=== PATIENT | male | born 1955 | race Asian ===

== ENCOUNTER 2017-01-27 15:08 | Emergency (ER) | payer OTHER ==
[2017-01-27 15:19] VITALS: BP 115/78
[2017-01-27] MEDS ORDERED: HYDROcod/ACETAM 5/325 MG TABLET PO STA (16:15)
[2017-01-27] MEDS ORDERED: HYDROcod/ACETAM 5/325 MG TABLET ONE (16:16)
--- NOTE | 2017-01-27 16:24 | ED Physician Documentation ---
PD HPI BACK PAIN - Stated complaint Stated Complaint: TAIL BONE PX - Chief complaint Chief Complaint: General - History obtained from History obtained from: Patient, Family - History of Present Illness Timing - onset: How many weeks ago (6) Timing - duration: Weeks (6) Timing - details: Gradual onset, Still present Location: Lower Quality: Pain, Spasm, Sharp Associated symptoms: No: Fever, Weakness, Numbness Improves with: Rest Worsened by: Movement, Palpation Similar symptoms before: Has not had sx before Recently seen: Other (The patient was recently seen the oncologist has had a biopsy done and MRI scanning.) - Additional information Additional information: 61-year-old male has had some trouble with his back pain not responding to his usual conservative measures and over the past 6 months he has lost weight and developed more pain in his lower back. He has been into see the oncologist and he has been diagnosed with prostate cancer and has had an MRI of his back showing metastases to his bone. He has pain specifically in the sacroiliac area and the coccyx. The patient is expecting to see the oncologist tomorrow he is expecting to start some anti-androgen medication today and he is considering orchiectomy. 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 Review of Systems Constitutional: reports: Fatigue. denies: Fever Eyes: denies: Decreased vision Ears: denies: Ear pain Nose: denies: Congestion Throat: denies: Sore throat Cardiac: denies: Chest pain / pressure Respiratory: denies: Dyspnea, Cough GI: denies: Abdominal Pain, Nausea, Vomiting : denies: Dysuria Musculoskeletal: reports: Back pain Neurologic: reports: Generalized weakness. denies: Focal weakness, Numbness PD PAST MEDICAL HISTORY - Present Medications Home Medications: Ambulatory Orders Medication Instructions Recorded Confirmed HYDROcod/ACETAM 5/325 [[place] 5/325] 1 - 2 ea PO Q6H PRN #15 tablet 01/27/17 - Allergies Allergies/Adverse Reactions: Allergies Allergy/AdvReac Type Severity Reaction Status Date / Time No Known Drug Allergies Allergy Verified 01/27/17 15:19 PD ED PE NORMAL - Vitals Vital signs reviewed: Yes (Normal) - General General: Alert and oriented X 3, No acute distress, Well developed/nourished - HEENT HEENT: Atraumatic, PERRL - Respiratory Respiratory: No respiratory distress - Back Back: No CVA TTP, Other (There is pain to palpation of the lower lumbar spine and more tenderness to the coccyx) - Derm Derm: Normal color, Warm and dry, No rash - Extremities Extremities: No deformity, No edema - Neuro Neuro: Alert and oriented X 3, No motor deficit, No sensory deficit, Normal speech - Psych Psych: Normal mood, Normal affect Results - Vitals Vitals: Vital Signs - 24 hr 01/27/17 15:15 Temperature 36.4 C L Heart Rate 72 Respiratory 14 Rate Blood Pressure 115/78 O2 Saturation 100 Oxygen O2 Source Room air PD MEDICAL DECISION MAKING - ED course Complexity details: considered differential, d/w patient, d/w family ED course: 61-year-old male with a history of prostate cancer diagnosed yesterday has pain related to bony metastases. Here in the emergency department he is given a dose of Vicodin. And we have provided a prescription for a limited number of pain pills. Departure - Departure Disposition: 01 Home, Self Care Clinical Impression: Pain due to malignant neoplasm metastatic to bone Condition: Stable Instructions: Bone Metastasis Follow-Up: Your, doctor [Other] Prescriptions: HYDROcod/ACETAM 5/325 [[place] 5/325] 1 - 2 ea PO Q6H PRN #15 tablet PRN Reason: Pain
== END 2017-01-27 16:31 | disposition home or self-care (01) ==
LOC: ED 15:08
DX: G89.3 Neoplasm related pain (acute) (chronic) (principal); C79.51 Secondary malignant neoplasm of bone
CPT/HCPCS: 99283; A9270

== ENCOUNTER 2018-11-22 09:02 | Outpatient (CLI) | payer MEDICARE, OTHER ==
[2018-11-22 09:36] LABS: CHOL/HDL RATIO 2.7 (<5.0); CHOLESTEROL 307 mg/dL; HDL CHOLESTEROL 114 mg/dL; LDL CHOLESTEROL,CALCULATED 171 mg/dL; LDL/HDL RATIO 1.5 (<3.6); VLDL CHOLESTEROL 22 mg/dL
== END 2018-11-22 09:03 | disposition home or self-care (01) ==
LOC: LAB 09:02
PROVIDERS: ATTEND Internal Medicine
DX: C61 Malignant neoplasm of prostate (principal); Z79.899 Other long term (current) drug therapy; Z13.6 Encounter for screening for cardiovascular disorders
CPT/HCPCS: 36415; 80061; 83721

== ENCOUNTER 2019-05-09 09:43 | Outpatient (CLI) | payer MEDICARE, OTHER ==
--- NOTE | 2019-05-09 15:49 | Nuclear Medicine Report ---
Reason: METASTATIC WITH PROSTATE CANCER Procedure Date: 05/09/2019 Accession Number: [id number] / [id number] Procedure: NM - Bone Whole Body CPT Code: FULL RESULT: EXAM: BONE SCAN. EXAM DATE: 05/09/2019 02:08 PM. CLINICAL HISTORY: Metastatic with prostate cancer. COMPARISON: Thoracic spine and pelvis radiographs, same day (reports are not available). TECHNIQUE: Following the intravenous administration of 31.9 mCi of technetium 99m MDP and an appropriate delay, a whole-body scan was performed in anterior and posterior projections. Site-specific spot views of the region of interest were obtained in various projections. FINDINGS: Exam Quality: Normal overall osseous radiotracer uptake. Physiological tracer uptake in bilateral collecting systems. Skull: No focal uptake. Thorax: There is a tiny focus of increased uptake in the right lateral 5th rib and another in the left posterior 10th rib. Pelvis: There is a lesion in the midline upper sacrum which shows intensely increased uptake. There is an area of intensely increased uptake along the right sacroiliac joint. Additional asymmetric focus of uptake more inferiorly along the right sacroiliac joint. Spine: Curvilinear increased uptake along the right side of T8-T9, probably degenerative. IMPRESSION: 1. There are lesions in the pelvis and sacrum which are concerning for metastases. 2. Equivocal tiny subtle lesions in the right lateral 5th and left posterior 10th ribs. 3. Increased uptake along the right side of T8-T9 is favored to be degenerative. RADIA
--- NOTE | 2019-05-09 16:55 | XRAY Report ---
Reason: PAIN Procedure Date: 05/09/2019 Accession Number: [id number] / [id number] Procedure: XR - Pelvis 1 View CPT Code: FULL RESULT: EXAM: PELVIS RADIOGRAPHY EXAM DATE: 05/09/2019 02:00 PM. CLINICAL HISTORY: PAIN. Stage IV prostate cancer. COMPARISON: BONE SCAN 05/09/2019 12:31 PM. TECHNIQUE: 1 view. FINDINGS: Bones: No fracture or bone lesion. Joints: The visualized hip, pubis symphysis, and sacroiliac joints are preserved. No subluxation. Degenerative changes are present in the sacroiliac joints which may account for the increased uptake seen on the recent bone scan. Soft Tissues: Unremarkable IMPRESSION: No blastic lesion is identified to account for the increased tracer uptake seen in the pelvis by bone scan. Degenerative changes are present. [facility] ADDENDUM: 05/10/19 09:37 Prior report now available from a bone scan performed 01/29/2017 describes extensive abnormal accumulation throughout the right and left sacrum. There are additional foci of abnormal increased uptake within the coccyx and left acetabular region. Findings correspond to areas of abnormal signal on the prior MRI study and are consistent with bony metastatic disease. If pelvic pain persists consider follow-up by MRI to assess the extent of metastatic disease.
--- NOTE | 2019-05-09 16:57 | XRAY Report ---
Reason: PAIN Procedure Date: 05/09/2019 Accession Number: [id number] / [id number] Procedure: XR - Thoracic Spine 2 View CPT Code: FULL RESULT: EXAM: THORACIC SPINE RADIOGRAPHY EXAM DATE: 05/09/2019 02:00 PM. CLINICAL HISTORY: PAIN. Abnormal bone scan mid thoracic region. Stage IV prostate cancer. COMPARISON: None. TECHNIQUE: 2 views. FINDINGS: Alignment: No spondylolisthesis or scoliosis. Bones: No fractures or bone lesions. Scattered degenerative osteophyte formation. Disks: Scattered degenerative disk space narrowing. Soft Tissues: The included lungs and cardiomediastinal silhouette are normal. IMPRESSION: Degenerative change thoracic spine without definite evidence of a lytic or blastic lesion. RADIA
== END 2019-05-09 09:44 | disposition home or self-care (01) ==
LOC: DI 09:43
PROVIDERS: ATTEND Physician Assistant
DX: M51.34 Other intervertebral disc degeneration, thoracic region (principal); M47.814 Spondylosis without myelopathy or radiculopathy, thoracic region; M47.818 Spondylosis without myelopathy or radiculopathy, sacral and sacrococcygeal region; C61 Malignant neoplasm of prostate; C79.9 Secondary malignant neoplasm of unspecified site
CPT/HCPCS: 72070; 72170; 78306

== ENCOUNTER 2020-01-27 06:39 | Emergency (ER) | payer MEDICARE, OTHER ==
[2020-01-27 07:21] LABS: ALBUMIN 4.7 g/dL (3.2-5.5); ALBUMIN/GLOBULIN RATIO 2.9 (1.0-2.2); BILIRUBIN,TOTAL 1.2 mg/dL (0.2-1.0); CALCIUM 9.5 mg/dL (8.5-10.3); CREATININE 1.2 mg/dL (0.6-1.2); TOTAL PROTEIN 6.3 g/dL (6.7-8.2)
[2020-01-27] MEDS ORDERED: SODIUM CHLORIDE 0.9% 1,000 ML IV STA (07:27)
[2020-01-27] MEDS ORDERED: KETOROLAC 30 MG/ML VIAL IVP STA (07:27)
[2020-01-27 07:31] LABS: BASOPHILS % (AUTO) 0.3 %; EOSINOPHILS % (AUTO) 0.1 %; HGB - HEMOGLOBIN 14.9 g/dL (14.0-18.0); LYMPHOCYTES # (AUTO) 1.3 10^3/uL (1.5-3.5); MEAN CORPUSCULAR HEMOGLOBIN 33.3 pg (27.0-31.0); MEAN CORPUSCULAR HGB CONC 35.5 g/dL (32.0-36.0); MEAN CORPUSCULAR VOLUME 93.8 fL (80.0-94.0); MEAN PLATELET VOLUME 10.6 fL (7.4-11.4); MONOCYTES # (AUTO) 0.9 10^3/uL (0.0-1.0); NEUTROPHILS # (AUTO) 6.5 10^3/uL (1.5-6.6); NEUTROPHILS % (AUTO) 73.9 %; PLT - PLATELET COUNT 241 10^3/uL (130-450); RED BLOOD COUNT 4.48 10^6/uL (4.70-6.10); RED CELL DISTRIBUTION WIDTH 11.7 % (12.0-15.0); WHITE BLOOD COUNT 8.8 x10^3/uL (4.8-10.8)
--- NOTE | 2020-01-27 07:31 | ED Physician Documentation ---
PD HPI ABD PAIN - Stated complaint Stated Complaint: ABD PX, BACK PX - CA PT - Chief complaint Chief Complaint: Abd Pain - History obtained from History obtained from: Patient, Family - History of Present Illness Timing - onset: Enter time (0700), Yesterday Timing - duration: Days (1) Timing - details: Abrupt onset, Still present Quality: Sharp, Pain Location: Epigastric Radiation: Right flank Improved by: Other (nothing) Worsened by: Other (nothing) Associated symptoms: Nausea, Hematuria. No: Fever, Vomiting, Hematemesis, Diarrhea, Constipation, Dysuria Similar symptoms before: Has not had sx before Recently seen: Not recently seen - Additional information Additional information: 64-year-old male with stage IV prostate cancer has developed epigastric and right upper quadrant abdominal pain beginning yesterday morning. He has had some nausea with this he has not had vomiting he has been able to eat throughout the day. He did not find anything that helped with the pain he did not find anything that made it worse. He has not had this specific pain previously. He did note a pink tinge to his urine yesterday. Review of Systems Constitutional: denies: Fever Eyes: denies: Decreased vision Ears: denies: Ear pain Nose: denies: Rhinorrhea / runny nose, Congestion Throat: denies: Sore throat Respiratory: denies: Cough GI: reports: Abdominal Pain, Nausea. denies: Vomiting, Constipation, Diarrhea : reports: Hematuria. denies: Dysuria, Frequency Skin: denies: Rash Musculoskeletal: reports: Back pain. denies: Neck pain, Extremity pain PD PAST MEDICAL HISTORY - Past Medical History Past Medical History: Yes : Other Other Past Medical History: Prostate CA mets to bones - Past Surgical History Past Surgical History: No - Present Medications Home Medications: Ambulatory Orders Medication Instructions Recorded Confirmed Abiraterone Acetate [Zytiga] 1,000 mg PO DAILY 10/11/18 01/27/20 Calcium Carbonate/Vitamin D3 1 tab PO DAILY 10/11/18 01/27/20 [Calcium 250-D Tablet] Cannabidiol (Cbd) [Epidiolex] 50 - 125 mg PO BID 10/11/18 01/27/20 Prednisone 5 mg PO DAILY 10/11/18 01/27/20 Ascorbic Acid [Vitamin C] 500 mg PO BID 11/22/18 01/27/20 Megestrol Acetate [Megace Es] 40 mg PO DAILY 02/21/19 01/27/20 Cannabidiol (Cbd) [Epidiolex] 125 mg PO QPM 04/26/19 01/27/20 Hydrocodone/Acetaminophen 1 - 2 each PO Q6H PRN #14 tablet 01/27/20 [Hydrocodon-Acetaminophen 5-325] Ondansetron Odt [Zofran] 4 mg TL Q6H PRN #10 tablet 01/27/20 - Allergies Allergies/Adverse Reactions: Allergies Allergy/AdvReac Type Severity Reaction Status Date / Time oxybutynin AdvReac Dizziness Verified 01/27/20 06:49 - Social History Does the pt smoke?: No Smoking Status: Never smoker Does the pt drink ETOH?: No Does the pt have substance abuse?: No - Immunizations Immunizations are current?: Yes - POLST Patient has POLST: No PD ED PE NORMAL - Vitals Vital signs reviewed: Yes (Hypertensive) - General General: Alert and oriented X 3, Well developed/nourished, Other (Uncomfortable 64-year-old male writhing in his bed) - HEENT HEENT: Atraumatic, PERRL, EOMI - Neck Neck: Supple, no meningeal sign, No bony TTP - Cardiac Cardiac: RRR, No murmur - Respiratory Respiratory: No respiratory distress, Clear bilaterally - Abdomen Abdomen: Normal bowel sounds, Soft, Non tender, Non distended, No organomegaly - Back Back: No CVA TTP, No spinal TTP - Derm Derm: Normal color, Warm and dry, No rash - Extremities Extremities: No deformity, No edema - Neuro Neuro: Alert and oriented X 3, 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6 Neut # (Auto) 6.5 Lymph # (Auto) 1.3 L [place] # (Auto) 0.9 Eos # (Auto) 0.0 Baso # (Auto) 0.0 Absolute Nucleated RBC 0.00 Nucleated RBC % 0.0 Sodium 140 Potassium 3.0 L Chloride 106 Carbon Dioxide 20 L Anion Gap 14.0 H BUN 18 Creatinine 1.2 Estimated GFR (MDRD) 61 L Glucose 155 H Calcium 9.5 Total Bilirubin 1.2 H AST 20 ALT 18 Alkaline Phosphatase 33 L Total Protein 6.3 L Albumin 4.7 Globulin 1.6 L Albumin/Globulin Ratio 2.9 H Lipase 27 Urine Color YELLOW Urine Clarity CLEAR Urine pH 6.0 Ur Specific [place] 1.025 Urine Protein NEGATIVE Urine Glucose (UA) NEGATIVE Urine Ketones TRACE Urine Occult Blood LARGE H Urine Nitrite NEGATIVE Urine Bilirubin NEGATIVE Urine Urobilinogen 0.2 (NORMAL) Ur Leukocyte Esterase NEGATIVE Urine RBC 11-25 H Urine WBC 0-3 Ur Squamous Epith Cells NONE SEEN Urine Crystals 6-10 Calcium Oxalate Urine Bacteria None Seen Ur Microscopic Review INDICATED Urine Culture Comments NOT INDICATED - Rads (name of study) CT ab/pel w/o Radiology: Prelim report reviewed (Impression: 1. Mild right hydronephrosis and proximal hydroureter secondary to 3 mm ureteral calculus as above.), EMP read indepedently, See rad report Procedures - Bedside sono Bedside sono by EMP: With use of bedside ultrasound the right upper quadrant is imaged there is no clear depiction of the gallbladder. The right kidney is imaged it is sonographically nontender and there is evidence of hydronephrosis. During the exam the patient does not exhibit any tenderness but is clearly able to identify this the area of his pain as mid right abdomen laterally PD MEDICAL DECISION MAKING - ED course Complexity details: reviewed results, re-evaluated patient, considered differential, d/w patient, d/w family ED course: 64-year-old male with stage IV prostate Cancer comes in with complaints of right upper quadrant abdominal pain he has some hydronephrosis on bedside exam with the ultrasound and history consistent with ureteral lithiasis. IV saline is begun is given 30 mg of Toradol. This had little effect on the patient's pain and he is administered Dilaudid 1 mg intravenously with Zofran 4 mg. He has excellent pain control with this. CT does demonstrate the appearance of a 3 mm stone in the proximal ureter with some mild hydro-. Departure - Departure Disposition: 01 Home, Self Care Clinical Impression: Ureterolithiasis Condition: Stable Instructions: ED Stone Renal W Colic Follow-Up: Joel Ramirez MD [Primary Care Provider] - Prescriptions: Hydrocodone/Acetaminophen [Hydrocodon-Acetaminophen 5-325] 1 - 2 each PO Q6H PRN #14 tablet PRN Reason: pain Ondansetron Odt [Zofran] 4 mg TL Q6H PRN #10 tablet PRN Reason: Nausea / Vomiting Discharge Date/Time: 01/27/20 10:13
[2020-01-27] MEDS ORDERED: ONDANSETRON 4 MG/2 ML VIAL IVP STA (08:00)
[2020-01-27] MEDS ORDERED: HYDROmorphone 1 MG/ML CARPUJECT IVP STA ×2 (08:00→09:01)
--- NOTE | 2020-01-27 08:09 | CT Report ---
PROCEDURE: Abdomen/Pelvis WO INDICATIONS: flank pain kidney stone suspected R TECHNIQUE: Noncontrast 5 mm thick sections acquired from the diaphragms to the symphysis. 5 mm coronal and sagi ttal reformats were then performed. For radiation dose reduction, the following was used: automated exposure control, adjustment of mA and/or kV according to patient size. COMPARISON: None. FINDINGS: Image quality: Excellent. ABDOMEN: Lung bases: Lung bases are clear. Heart size is normal. Solid organs: Liver and spleen are normal in size. Gallbladder is unremarkable Pancreas is normal in contours. No adrenal nodules. Left kidney and ureter are unremarkable. The right kidney demonstra mirella mild hydronephrosis as well as mild proximal hydroureter. There is perinephric and periureteral s tranding. A proximal 3 mm ureteral calcification, Hounsfield units 500, is present. Peritoneum and bowel: Unenhanced bowel loops demonstrate normal wall thickness and caliber. No free fluid or air. Nodes and vessels: No retroperitoneal or mesenteric adenopathy by size criteria. Aorta and inferior vena cava are normal in caliber. Miscellaneous: No ventral hernias. PELVIS: Genitourinary: Bladder wall thickness is normal. Miscellaneous: Bilateral fat-containing inguinal hernias are present. Bones: No suspicious bony lesions. No vertebral body compression fractures. IMPRESSION: 1. Mild right hydronephrosis and proximal hydroureter secondary to 3 mm ureteral calculus as above. Reviewed by: Re Stephenson MD on 01/27/2020 8:07 AM PDT Approved by: Re Stephenson MD on 01/27/2020 8:07 AM PDT Station ID: [id number]
[2020-01-27] MEDS ORDERED: POTASSIUM CHLORIDE 20 MEQ TABLET PO STA (08:26)
[2020-01-27 09:42] LABS: BILIRUBIN,URINE NEGATIVE (NEGATIVE); GLUCOSE, URINE (UA) NEGATIVE (NEGATIVE); KETONES,URINE (UA) TRACE mg/dL (NEGATIVE); LEUKOCYTE ESTERASE, URINE NEGATIVE (NEGATIVE); NITRITE,URINE NEGATIVE (NEGATIVE); OCCULT BLOOD,URINE LARGE (NEGATIVE); PROTEIN,URINE NEGATIVE (NEGATIVE); UROBILINOGEN,URINE 0.2 (NORMAL) E.U./dL (NORMAL)
[2020-01-27 09:44] LABS: CLARITY,URINE CLEAR (CLEAR)
[2020-01-27 09:57] LABS: BACTERIA,URINE None Seen /HPF (None Seen); SQUAMOUS EPITHELIAL CELL,UR NONE SEEN (<= Few)
[2020-01-27 09:58] LABS: CRYSTALS,URINE 6-10 Calcium Oxalate /LPF
[2020-01-27 10:12] VITALS: BP 117/91
== END 2020-01-27 10:13 | disposition home or self-care (01) ==
LOC: ED 06:39
DX: N13.2 Hydronephrosis with renal and ureteral calculous obstruction (principal); K40.20 Bilateral inguinal hernia, without obstruction or gangrene, not specified as recurrent; C61 Malignant neoplasm of prostate; C79.51 Secondary malignant neoplasm of bone
CPT/HCPCS: 36415; 74176; 80053; 81001; 83690; 85025; 96361; 96374; 96375; 96376; 99284; A9270; J1170; 81003; 87086

== ENCOUNTER 2024-02-15 07:13 | Outpatient (CLI) | payer MEDICARE, OTHER ==
[2024-02-15 15:26] LABS: CHOL/HDL RATIO 2.6 (<5.0); CHOLESTEROL 227 mg/dL; HDL CHOLESTEROL 86 mg/dL; LDL CHOLESTEROL,CALCULATED 120 mg/dL; LDL/HDL RATIO 1.4 (<3.6); TRIGLYCERIDES 105 mg/dL; VLDL CHOLESTEROL 21 mg/dL
== END 2024-02-15 07:14 | disposition home or self-care (01) ==
LOC: LAB.S 07:13
PROVIDERS: ATTEND Nurse Practitioner Gerontology
DX: Z51.81 Encounter for therapeutic drug level monitoring (principal); Z79.899 Other long term (current) drug therapy
CPT/HCPCS: 36415; 80061; 82306; 82607; 83721